=== PATIENT | female | born 1935 | race American Indian/Alaskan Native ===

== ENCOUNTER 2018-11-09 11:58 | Emergency (ER) | payer MEDICARE ==
--- NOTE | 2018-11-09 12:19 | Emergency Department Report ---
HPI - General Time Seen by Provider: 11/09/18 12:00 - HPI HPI: Charge nurse triage /Room 21 The patient is an 83-year-old female presented with a chief complaint of right- sided weakness. Per EMS the patient's last known well time was 04:00 this morning when she was seen by other family members. Family awakened this morning to find the patient aphasic with right-sided weakness. The patient does not speak and her right upper extremity is flaccid Location: [facility] Duration: [See above] Quality: [See above] Severity: [See above] Modifying factors: [see above] Context: [see above] Mode of transportation: [not driving] ED Past Medical Hx - Past Medical History Hx Hypertension: Yes - Surgical History Hx Open Heart Surgery: Yes (CABG) Additional Surgical History: Cardiac stent - Family History Family history: no significant - Social History Smoking Status: Unknown if ever smoked - Medications Home Medications: Home Medications Medication Instructions Recorded Confirmed Last Taken Type Aspirin 81 mg PO DAILY 11/09/18 11/09/18 Unknown History Lipitor 80 mg PO HS 11/09/18 11/09/18 Unknown History Losartan-Hctz 100-25 mg Tab 100 mg PO DAILY 11/09/18 11/09/18 Unknown History ED Review of Systems ROS: Stated complaint: POSSIBLE STROKE Other details as noted in HPI Comment: Unobtainable due to pts medical conditions Physical Exam - Physical Exam Physical Exam: GENERAL: The patient is well-developed well-nourished elderly female lying on stretcher not appearing to be in acute distress. Patient is aphasic. [] HEENT: Normocephalic. Atraumatic. Extraocular motions are intact. Patient has moist mucous membranes. NECK: Supple. Trachea midline CHEST/LUNGS: Clear to auscultation. There is no respiratory distress noted. HEART/CARDIOVASCULAR: Regular. There is no tachycardia. There is no gallop rub or murmur. ABDOMEN: Abdomen is soft, nontender. Patient has normal bowel sounds. There is no abdominal distention. SKIN: There is no rash. There is no edema. There is no diaphoresis. NEURO: The patient is awake but does not make eye contact. Patient does not speak. Patient's head is turned slightly left. Patient will not comply with ne urologic exam MUSCULOSKELETAL:There is no evidence of acute injury. NIHSS= 16 LOC a. Alert= 0 Not alert but arousable to minor stimuli=1 Not alert requires repeated or strong stimuli to move= 2 Responds only reflex motor or unresponsive=3 b. asks month and age answers both correctly= 0 answers one correctly= 1 (+)answers neither correctly= 2 Best Gaze normal= 0 abnormal in one or both but forced deviation or total paresis absent= 1 forced deviation or total gaze paresis= 2 Visual no visual loss= 0 partial hemianopia= 1 complete hemianopia= 2 bilateral hemianopia= 3 Facial Palsy normal= 0 (+)minor paralysis= 1 partial paralysis= 2 complete paralysis= 3 Motor Arm no drift= 0 drift before 10 secs but doesnt hit bed= 1 some effort against gravity= 2 no effort against gravity= 3 (+)no movement= 4 Motor leg no drift= 0 drift before 5 secs but doesnt hit bed= 1 drifts to bed before 5 secs= 2 no effort against gravity= 3 (+)no movement= 4 Limb ataxia absent=0 present in one limb= 1 present in two limbs= 2 Sensory normal= 0 mild sensory loss= 1 severe (unaware of being touched)= 2 Best language mild/some loss of fluency= 1 severe= 2 (+)mute= 3 Dysarthria normal= 0 slurs some words= 1 severe/unintelligible= 2 Extinction and Inattention no abnormality= 0 visual, tactile, auditory or personal inattention= 1 (+)profound (doesnt recognize own hand or orients to only one side= 2 ED Course - Consultations Consultation #1: 11/09/18 15:31 [place] transfer line called- no stroke beds available Consultation #2: 11/09/18 15:37 [place] transfer line called 11/09/18 15:[address] Mann- will review images and call back 11/09/18 16:[address] Montanez- patient is not a candidate for thrombectomy. Recommends antiplatelet therapy and fluid bolus ED Medical Decision Making - Lab Data Result diagrams: 11/09/18 12:22 11/09/18 12:22 - EKG Data -: EKG Interpreted by Me EKG shows normal: sinus rhythm Rate: bradycardia (49 bpm) - EKG Data When compared to previous EKG there are: previous EKG unavailable Interpretation: nonspecific ST-T wave merissa (T-wave inversions in leads V2, V3) - Radiology Data Radiology results: report reviewed (CT head, CT angiogram brain, CT angiogram neck), image reviewed (CT head, CT angiogram brain, CT angiogram neck) Findings [address] [address] Cat Scan Report Signed Patient: RICHARD BEAULIEU MR#: [id number] : 1935 Acct:[id number] Age/Sex: 83 / F ADM Date: 11/09/18 Loc: ED Attending Dr: Ordering Physician: BROWN DOS SANTOS MD Date of Service: 11/09/18 Procedure(s): CT head/brain wo con Accession Number(s): [id number] cc: BROWN DOS SANTOS MD FINAL REPORT EXAM: CT HEAD/BRAIN WO CON HISTORY: neuro deficits lt; 6hrs or sx present upon awakening COMPARISON: None. TECHNIQUE: Multiple contiguous axial images were obtained from the skullbase to the vertex without administration of IV contrast. FINDINGS: There is age related cerebral cortical atrophy. There no parenchymal hemorrhage, extra-axial fluid collection, or mass. There is no acute territorial infarct. There are patchy areas of decreased attenuation in the subcortical and periventricular white matter, likely due to chronic microvascular ischemic disease. The ventricles are midline. The subarachnoid spaces and basilar cisterns are clear. There is no skull fracture. The paranasal sinuses and mastoid air cells are clear. IMPRESSION: No acute intracranial abnormality. Age related cerebral cortical atrophy. Chronic microvascular ischemic disease in the subcortical and periventricular white matter. Negative acute findings were discussed with Dr. Dos Santos at 12:20PM EST on 11/09/18 by [facility] operations support s taf. Transcribed By: MEME Dictated By: GRACY NAILS MD Electronically Authenticated By: GRACY NAILS MD Signed Date/Time: 11/09/18 1222 DD/ 1224 TD/TT: 11/09/[address] [address] Cat Scan Report Signed Patient: RICHARD BEAULIEU MR#: [id number] : 1935 Acct:[id number] Age/Sex: 83 / F ADM Date: 11/09/18 Loc: ED Attending Dr: Ordering Physician: BROWN DOS SANTOS MD Date of Service: 11/09/18 Procedure(s): CT angio neck Accession Number(s): [id number] cc: BROWN DOS SANTOS MD FINAL REPORT EXAM: CT ANGIO NECK HISTORY: right-sided hemiparesis TECHNIQUE: CTA of the Head with IV contrast. Coronal and sagittal reconstructed imaging provided. CTA of the Neck with IV contrast. Coronal and sagittal reconstructed imaging provided. Carotid stenosis calculated by the NASCET method. PRIORS: None currently avai lable. FINDINGS: HEAD: Trace peripheral contrast in a mostly occluded left intracranial carotid. Collateral flow probably through the anterior communicating artery into the left MALINI and MCA distributions. No abrupt cutoff noted in the left M2 distribution Right anterior circulation appears intact. B ilateral posterior circulations appear intact. No aneurysm. NECK: RIGHT CAROTID: Origin: Unremarkable. Common: Unremarkable. Bifurcation: Mild calcified plaque. Internal: Mild calcified plaque. External: Unremarkable. There is no aneurysm, dissection, vascular malformation, or significant vascular stenosis. There is no evidence for vasculitis. LEFT CAROTID: Origin: Unremarkable. Common: Unremarkab le. Bifurcation: Mild calcified plaque. Internal: Loss of contrast at the proximal portion. Trace contrast flow in the remainder of the carotid. External: Unremarkable. No aneurysm. VERTEBRALS: Intact. Equally dominant. There is no aneurysm, dissection, vascular malformation, or significant vascular stenosis. There is no evidence for vasculitis. OTHER: Partially imaged thoracic aorta demonstrates [id number]-eq-[id number] aortic atherosclerotic disease without aneurysm or dissection. Major branch arteries are patent with contrast. Bovine arch noted. Images of the upper lung are unremarkable. Partially imaged main pulmonary artery is unremarkable. Degenerative changes are present within the spine. Polyp or large cysts in the right ethmoid sinus measuring 19 x 9 mm. 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 Left MALINI and MCA distributions are patent with contrast probably through collateral flow. Right anterior and bilateral posterior circulations are intact. November 09, 2018 at 15004 PST: I discussed the findings over phone with Dr. Dos Santos. Transcribed By: TYM Dictated By: SILVESTRE GONZALES MD Electronically Authenticated By: SILVESTRE GONZALES MD Signed Date/Time: 11/09/18 1532 DD/ 1535 TD/TT: 11/09/18 1535 [facility] [address] [place] [address] Cat Scan Report Signed Patient: RICHARD BEAULIEU MR#: [id number] : 1935 Acc t:[id number] Age/Sex: 83 / F ADM Date: 11/09/18 Loc: ED Attending Dr: Ordering Physician: BROWN DOSS ANTOS MD Date of Service: 11/09/18 Procedure(s): CT angio head Accession Number(s): [id number] cc: BROWN DOS SANTOS MD FINAL REPORT EXAM: CT ANGIO HEAD HISTORY: right-sided hemiparesis TECHNIQUE: CTA of the Head with IV contrast. Coronal and sagittal reconstructed imaging provided. CTA of the Neck with IV contrast. Coronal and sagittal reconstructed imaging provided. Carotid stenosis calculated by the NASCET method. PRIORS: None currently available. FINDINGS: HEAD: Trace peripheral contrast in a mostly occluded left intracranial carotid. Collateral flow probably through the anterior communicating artery into the left MALINI and MCA distributions. No abrupt cutoff noted in the left M2 distribution Right anterior circulation appears intact. Bilateral posterior circulations appear intact. No aneurysm. NECK: RIGHT CAROTID: Origin: Unremarkable. Common: Unremarkable. Bifurcation: Mild calcified plaque. Internal: Mild calcified plaque. External: Unremarkable. There is no aneurysm, dissection, vascular malformation, or significant vascular stenosis. There is no evidence for vasculitis. LEFT CAROTID: Origin: Unremarkable. Common: Unremarkable. Bifurcation: Mild calcified plaque. Internal: Loss of contrast at the proximal portion. Trace contrast flow in the remainder of the carotid. External: Unremarkable. No aneurysm. VERTEBRALS: Intact. Equally dominant. There is no aneurysm, dissection, vascular malformation, or significant vascular stenosis. There is no evidence for vasculitis. OTHER: Partially imaged thoracic aorta demonstrates unop-kn-xzxojfni aortic atherosclerotic disease without aneur ysm or dissection. Major branch arteries are patent with contrast. Bovine arch noted. Images of the upper lung are unremarkable. Partially imaged main pulmonary artery is unremarkable. Degenerative changes are present within the spine. Polyp or large cysts in the right ethmoid sinus measuring 19 x 9 mm. 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 Left MALINI and MCA distributions are patent with contrast probably through collateral flow. Right anterior and bilateral posterior circulations are intact. November 09, 2018 at 24461 PST: I discussed the findings over phone with Dr. Dos Santos. Transcribed By: TYM Dictated By: SILVESTRE GONZALES MD Electronically Authenticated By: SILVESTRE GONZALES MD Signed Date/Time: 11/09/181533 DD/ 153 TD/TT: 11/09/18 1535 - Differential Diagnosis CVA Critical Care Time: Yes Critical care time in (mins) excluding proc time.: 30 Critical care attestation.: If time is entered above; I have spent that time in minutes in the direct care of this critically ill patient, excluding procedure time. ED Disposition Clinical Impression: CVA (cerebral vascular accident) Disposition: DC-09 OP ADMIT IP TO THIS HOSP Is pt being admited?: Yes Does the pt Need Aspirin: Yes Condition: Serious Referrals: PRIMARY CARE, [Primary Care Provider] - 3-5 Days Time of Disposition: 16:28 (hospitalist paged (Dr Bundy))
--- NOTE | 2018-11-09 12:22 | Cat Scan Report ---
FINAL REPORT EXAM: CT HEAD/BRAIN WO CON HISTORY: neuro deficits <6hrs or sx present upon awakening COMPARISON: None. TECHNIQUE: Multiple contiguous axial images were obtained from the skullbase to the vertex without a dministration of IV contrast. FINDINGS: There is age related cerebral cortical atrophy. There no parenchymal hemorrhage, extra-axial fluid co llection, or mass. There is no acute territorial infarct. There are patchy areas of decreased attenua tion in the subcortical and periventricular white matter, likely due to chronic microvascular ischemi c disease. The ventricles are midline. The subarachnoid spaces and basilar cisterns are clear. There is no skull fracture. The paranasal sinuses and mastoid air cells are clear. IMPRESSION: No acute intracranial abnormality. Age related cerebral cortical atrophy. Chronic microvascular ischemic disease in the subcortical and periventricular white matter. Negative acute findings were discussed with Dr. Jett at 12:20PM EST on 11/09/18 by [facility].
[2018-11-09] MEDS ORDERED: ASPIRIN PR ONE (12:25)
[2018-11-09 12:29] LABS: Basophils % (Auto) 0.4 % (0.0-1.8); Eosinophils # (Auto) 0.1 K/mm3 (0.0-0.4); Eosinophils % (Auto) 1.6 % (0.0-4.3); Hematocrit 34.9 % (30.3-42.9); Lymphocytes # (Auto) 1.1 K/mm3 (1.2-5.4); Lymphocytes % (Auto) 12.4 % (13.4-35.0); Mean Corpuscular HGB Conc 32 % (30-34); Mean Corpuscular Volume 83 fl (79-97); Monocytes # (Auto) 0.5 K/mm3 (0.0-0.8); Monocytes % (Auto) 5.5 % (0.0-7.3); Platelet Count 318 K/mm3 (140-440); Red Blood Count 4.19 M/mm3 (3.65-5.03); Red Cell Distribution Width 18.7 % (13.2-15.2)
[2018-11-09 12:42] LABS: INR 1.09 (0.87-1.13)
[2018-11-09 12:43] LABS: Partial Thromboplastin Time 29.9 Sec. (24.2-36.6)
[2018-11-09 12:51] LABS: BUN/Creatinine Ratio 15; Blood Urea Nitrogen 15 mg/dL (7-17); Calcium 9.2 mg/dL (8.4-10.2); Hemolysis Index 1
[2018-11-09 15:04] LABS: Bilirubin,Urine NEG (Negative); Blood,Urine MOD (Negative); Color,Urine Colorless (Yellow); Mucus,Urine FEW /HPF; Protein,Urine <15 mg/dL mg/dL (Negative); Urobilinogen,Urine < 2.0 mg/dL (<2.0)
[2018-11-09] MEDS ORDERED: LEVAQUIN 500MG/100ML 500 MG/100 ML BAG IV ONE (15:28)
--- NOTE | 2018-11-09 15:32 | Cat Scan Report ---
FINAL REPORT EXAM: CT ANGIO NECK HISTORY: right-sided hemiparesis TECHNIQUE: CTA of the Head with IV contrast. Coronal and sagittal reconstructed imaging provided. CTA of the Neck with IV contrast. Coronal and sagittal reconstructed imaging provided. Carotid stenos is calculated by the NASCET method. PRIORS: None currently available. FINDINGS: HEAD: Trace peripheral contrast in a mostly occluded left intracranial carotid. Collateral flow probably through the anterior communicating artery into the left MALINI and MCA distribu tions. No abrupt cutoff noted in the left M2 distribution Right anterior circulation appears intact. Bilateral posterior circulations appear intact. No aneurysm. NECK: RIGHT CAROTID: Origin: Unremarkable. Common: Unremarkable. Bifurcation: Mild calcified plaque. Internal: Mild calcified plaque. External: Unremarkable. There is no aneurysm, dissection, vascular malformation, or significant vascular stenosis. There is n o evidence for vasculitis. LEFT CAROTID: Origin: Unremarkable. Common: Unremarkable. Bifurcation: Mild calcified plaque. Internal: Loss of contrast at the proximal portion. Trace contrast flow in the remainder of the carot id. External: Unremarkable. No aneurysm. VERTEBRALS: Intact. Equally dominant. There is no aneurysm, dissection, vascular malformation, or significant vascular stenosis. There is n o evidence for vasculitis. OTHER: Partially imaged thoracic aorta demonstrates [id number]-hg-[id number] aortic atherosclerotic disease without aneurysm or dissection. Major branch arteries are patent with contrast. Bovine arch noted. Images of the upper lung are unremarkable. Partially imaged main pulmonary artery is unremarkable. Degenerative changes are present within the spine. Polyp or large cysts in the right ethmoid sinus measuring 19 x 9 mm. 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 Left MALINI and MCA distributions are patent with contrast probably through collateral flow. Right anterior and bilateral posterior circulations are intact. November 09, 2018 at 53214 PST: I discussed the findings over phone with Dr. Jett.
--- NOTE | 2018-11-09 15:34 | Cat Scan Report ---
FINAL REPORT EXAM: CT ANGIO HEAD HISTORY: right-sided hemiparesis TECHNIQUE: CTA of the Head with IV contrast. Coronal and sagittal reconstructed imaging provided. CTA of the Neck with IV contrast. Coronal and sagittal reconstructed imaging provided. Carotid stenos is calculated by the NASCET method. PRIORS: None currently available. FINDINGS: HEAD: Trace peripheral contrast in a mostly occluded left intracranial carotid. Collateral flow probably through the anterior communicating artery into the left MALINI and MCA distribu tions. No abrupt cutoff noted in the left M2 distribution Right anterior circulation appears intact. Bilateral posterior circulations appear intact. No aneurysm. NECK: RIGHT CAROTID: Origin: Unremarkable. Common: Unremarkable. Bifurcation: Mild calcified plaque. Internal: Mild calcified plaque. External: Unremarkable. There is no aneurysm, dissection, vascular malformation, or significant vascular stenosis. There is n o evidence for vasculitis. LEFT CAROTID: Origin: Unremarkable. Common: Unremarkable. Bifurcation: Mild calcified plaque. Internal: Loss of contrast at the proximal portion. Trace contrast flow in the remainder of the carot id. External: Unremarkable. No aneurysm. VERTEBRALS: Intact. Equally dominant. There is no aneurysm, dissection, vascular malformation, or significant vascular stenosis. There is n o evidence for vasculitis. OTHER: Partially imaged thoracic aorta demonstrates yshy-qv-nfcancvj aortic atherosclerotic disease without aneurysm or dissection. Major branch arteries are patent with contrast. Bovine arch noted. Images of the upper lung are unremarkable. Partially imaged main pulmonary artery is unremarkable. Degenerative changes are present within the spine. Polyp or large cysts in the right ethmoid sinus measuring 19 x 9 mm. 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 Left MALINI and MCA distributions are patent with contrast probably through collateral flow. Right anterior and bilateral posterior circulations are intact. November 09, 2018 at 52925 PST: I discussed the findings over phone with Dr. Jett.
[2018-11-09] MEDS ORDERED: ASPIRIN ONE (16:08)
[2018-11-09] MEDS ORDERED: ASPIRIN PO ONE (16:11)
[2018-11-09] MEDS ORDERED: NACL 0.9% 1000 ML 1,000 ML IV ONE (16:22)
[2018-11-09 17:39] VITALS: BP 185/81
[2018-11-09] MEDS ORDERED: ZOFRAN IV PRN (18:49)
[2018-11-09] MEDS ORDERED: TYLENOL PO PRN (18:49)
[2018-11-09] MEDS ORDERED: SODIUM CHLORIDE FLUSH SYRINGE 10 ML IV PRN ×2 (18:49→18:54)
--- NOTE | 2018-11-09 18:49 | History and Physical Report ---
History of Present Illness Date of examination: 11/09/18 Medications and Allergies Allergies Allergy/AdvReac Type Severity Reaction Status Date / Time No Known Allergies Allergy Verified 11/09/18 12:20 Home Medications Medication Instructions Recorded Confirmed Last Taken Type Aspirin 81 mg PO DAILY 11/09/18 11/09/18 Unknown History Lipitor 80 mg PO HS 11/09/18 11/09/18 Unknown History Losartan-Hctz 100-25 mg Tab 100 mg PO DAILY 11/09/18 11/09/18 Unknown History Exam - Constitutional Vitals: Temp Pulse Resp BP Pulse Ox 98 F 58 L 16 185/81 96 11/09/18 12:21 11/09/18 17:35 11/09/18 17:35 11/09/18 17:35 11/09/18 17:35 Results - Labs CBC & Chem 7: 11/09/18 12:22 11/09/18 12:22 Labs: Laboratory Last Values WBC 9.2 K/mm3 (4.5-11.0) 11/09/18 12:22 RBC 4.19 M/mm3 (3.65-5.03) 11/09/18 12:22 Hgb 11.0 gm/dl (10.1-14.3) 11/09/18 12:22 Hct 34.9 % (30.3-42.9) 11/09/18 12:22 MCV 83 fl (79-97) 11/09/18 12:22 MCH 26 pg (28-32) L 11/09/18 12:22 MCHC 32 % (30-34) 11/09/18 12:22 RDW 18.7 % (13.2-15.2) H 11/09/18 12:22 Plt Count 318 K/mm3 (140-440) 11/09/18 12:22 Lymph % (Auto) 12.4 % (13.4-35.0) L 11/09/18 12:22 [place] % (Auto) 5.5 % (0.0-7.3) 11/09/18 12:22 Eos % (Auto) 1.6 % (0.0-4.3) 11/09/18 12:22 Baso % (Auto) 0.4 % (0.0-1.8) 11/09/18 12:22 Lymph # 1.1 K/mm3 (1.2-5.4) L 11/09/18 12:22 [place] # 0.5 K/mm3 (0.0-0.8) 11/09/18 12:22 Eos # 0.1 K/mm3 (0.0-0.4) 11/09/18 12:22 Baso # 0.0 K/mm3 (0.0-0.1) 11/09/18 12:22 Seg Neutrophils % 80.1 % (40.0-70.0) H 11/09/18 12:22 Seg Neutrophils # 7.4 K/mm3 (1.8-7.7) 11/09/18 12:22 PT 14.5 Sec. (12.2-14.9) 11/09/18 12:22 INR 1.09 (0.87-1.13) 11/09/18 12:22 APTT 29.9 Sec. (24.2-36.6) 11/09/18 12:22 Thrombin Time 16.0 Sec. (15.1-19.6) 11/09/18 12:22 Sodium 141 mmol/L (137-145) 11/09/18 12:22 Potassium 4.2 mmol/L (3.6-5.0) 11/09/18 12:22 Chloride 105.8 mmol/L (98-107) 11/09/18 12:22 Carbon Dioxide 25 mmol/L (22-30) 11/09/18 12:22 Anion Gap 14 mmol/L 11/09/18 12:22 BUN 15 mg/dL (7-17) 11/09/18 12:22 Creatinine 1.0 mg/dL (0.7-1.2) 11/09/18 12:22 Estimated GFR > 60 ml/min 11/09/18 12:22 BUN/Creatinine Ratio 15 % 11/09/18 12:22 Glucose 100 mg/dL (65-100) 11/09/18 12:22 POC Glucose 96 (70-105) 11/09/18 12:48 Calcium 9.2 mg/dL (8.4-10.2) 11/09/18 12:22 Troponin T < 0.010 ng/mL (0.00-0.029) 11/09/18 12:22 Urine Color Colorless (Yellow) 11/09/18 Unknown Urine Turbidity Clear (Clear) 11/09/18 Unknown Urine pH 8.0 (5.0-7.0) H 11/09/18 Unknown Ur Specific [place] 1.030 (1.003-1.030) 11/09/18 Unknown Urine Protein <15 mg/dl mg/dL (Negative) 11/09/18 Unknown Urine Glucose (UA) Neg mg/dL (Negative) 11/09/18 Unknown Urine Ketones Neg mg/dL (Negative) 11/09/18 Unknown Urine Blood Mod (Negative) 11/09/18 Unknown Urine Nitrite Neg (Negative) 11/09/18 Unknown Urine Bilirubin Neg (Negative) 11/09/18 Unknown Urine Urobilinogen < 2.0 mg/dL (<2.0) 11/09/18 Unknown Ur Leukocyte Esterase Lg (Negative) 11/09/18 Unknown Urine WBC (Auto) 48.0 /HPF (0.0-6.0) H 11/09/18 Unknown Urine RBC (Auto) 4.0 /HPF (0.0-6.0) 11/09/18 Unknown U Epithel Cells (Auto) 2.0 /HPF (0-13.0) 11/09/18 Unknown Urine Mucus Few /HPF 11/09/18 Unknown
[2018-11-09] MEDS ORDERED: DILAUDID IV PRN (18:51)
[2018-11-09] MEDS ORDERED: LOSARTAN HCTZ PO SCH (19:00)
[2018-11-09] MEDS ORDERED: D5NS 1,000 ML IV SCH (19:00)
[2018-11-09] MEDS ORDERED: COZAAR PO SCH (19:15)
[2018-11-09] MEDS ORDERED: HCTZ PO SCH (19:15)
[2018-11-09] MEDS ORDERED: SODIUM CHLORIDE FLUSH SYRINGE 10 ML IV SCH (22:00)
[2018-11-09] MEDS ORDERED: LIPITOR 80 MG PO SCH (22:00)
[2018-11-10] MEDS ORDERED: LOVENOX SUB-Q SCH ×2 (10:00)
[2018-11-10] MEDS ORDERED: ASPIRIN PO SCH (10:00)
--- NOTE | 2018-12-03 14:48 | Event Note ---
Date: 11/09/18 Patient left AMA
== END 2018-11-09 18:41 | disposition admitted as inpatient to this hospital (09) ==
LOC: ED 11:58
DX: I63.9 Cerebral infarction, unspecified (principal); I10 Essential (primary) hypertension; Z95.1 Presence of aortocoronary bypass graft; Z95.818 Presence of other cardiac implants and grafts
CPT/HCPCS: 36415; 70450; 70496; 70498; 80048; 81001; 82962; 83036; 84484; 85025; 85610; 85670; 85730; 93005; 93010; 96365; 99291; J1956; J7030; Q9967